=== PATIENT | male | born 1955 | race Caucasian/White ===

== ENCOUNTER → 2017-02-27 | Outpatient (CLI) | payer OTHER ==
[~2017-02-27] MED LIST: BACTRIM DS TABL1 TA1 PO; JANUVIA PO; KEFLEX500 MG PO; LISINOPRIL-HCTZ1 T17 PO; METFORMIN HCL500 M1 PO; NO MEDICATIONS; POLYTRIM EYE DR10 ML OP; SIMVASTATIN20 MG PO; VICODIN 5/1 TAB 5/50 PO; VOLTAREN75 MG PO
--- NOTE | ~2017-02-27 | CT57 ---
[facility] A Service of [facility] RADIOLOGY TEXT RESULTS PATIENT: ROHIT SURESH LOCATION: [facility] : 59 UNIT #: [id number] AGE: [address]: Ryan Barros MD SEX: M ORDER DR: [id number] [address] [id number] O MR#: [id number] Acc #: [id number] NAME: ROHIT SURESH : 1955 SEX: M STUDY DATE/TIME: 02/27/2017 13:21 UNIT: [facility] ROOM: STUDY DESCRIPTION: CT Chest Wo Cont Attending Physician: Ryan Barros M.D. Referring Physician: Ryan Barros M.D. Ordering Physician: Ryan Barros M.D. Primary Care Physician: Dorothy German M.D. MEDICAL IMAGING REPORT This report is preliminary unless electronic signature is present EXAM CT chest without contrast INDICATIONS Follow up aortic aneurysm. TECHNIQUE CT of the chest was performed without contrast. Coronal and sagittal reformatted images were obtained. This CT exam was performed with one or more of the following radiation dose reduction techniques: automatic exposure control, adjustment of mA and/or kV according to patient size, and iterative reconstruction. COMPARISON STUDIES Comparison is made with 12/31/2015. FINDINGS Stable ascending aortic aneurysm measuring about 4.4 cm in greatest dimension. There is some minimal calcification involving the aortic valve. The descending thoracic aorta is within normal limits. There is no suspicious lymphadenopathy. No pleural effusion. No airspace consolidation or suspicious pulmonary nodule. Limited imaging of the upper abdomen shows diffuse fatty infiltration of the liver. Stable left adrenal adenoma. The bone windows are unremarkable. IMPRESSION Stable ascending aortic aneurysm. Dictated by... Chase Koch M.D. [facility] A Service [facility] RADIOLOGY TEXT RESULTS PATIENT: ROHIT SURESH LOCATION: [facility] : 59 UNIT #: [id number] AGE: [address]: Ryan Barros MD SEX: M ORDER DR: THIS IS AN ELECTRONICALLY VERIFIED REPORT Chase Koch M.D. at 03/02/2017 4:01 PM ARS/pcl TD: 02/28/2017 18:54 JOB #: [id number] MEDICAL IMAGING REPORT Page 1 of 1 COPY
== END | disposition home or self-care (01) ==
LOC: CECH 12:19
DX: I71.2 Thoracic aortic aneurysm, without rupture (principal); I35.8 Other nonrheumatic aortic valve disorders; E11.9 Type 2 diabetes mellitus without complications; I50.30 Unspecified diastolic (congestive) heart failure; I51.7 Cardiomegaly; Z88.0 Allergy status to penicillin
CPT/HCPCS: 71250; 93306